=== PATIENT | male | born 1995 | race Caucasian/White ===

== ENCOUNTER → 2018-03-01 | Emergency (ER) | payer OTHER ==
[~2018-03-01] MED LIST: CIPRO500 MG PO; DOXYCYCLINE150 MG; LEVSIN0.125 MG PO; ZANTAC300 MG PO; ZOFRAN4 MG PO
== END | disposition left against medical advice (07) ==
LOC: ER 19:47
DX: Z53.20 Procedure and treatment not carried out because of patient's decision for unspecified reasons (principal)

== ENCOUNTER 2018-11-25 18:47 | Emergency (ER) | payer OTHER ==
[~2018-11-25] VITALS: Ht 167.6 cm; Wt 76.2 kg
[2018-11-25] MEDS ORDERED: CLEOCIN HCL300 MG PO (20:54)
[2018-11-25] MEDS ORDERED: INTESTINEX680 M1 PO (20:54)
== END 2018-11-25 21:19 | disposition home or self-care (01) ==
LOC: ER 18:47
DX: J31.2 Chronic pharyngitis (principal)

== ENCOUNTER 2019-07-23 08:27 | Emergency (ER) | payer OTHER ==
[~2019-07-23] VITALS: Ht 170.2 cm; Wt 63.5 kg
[~2019-07-23 08:27] MED LIST changes: +CLEOCIN HCL300 MG PO; +INTESTINEX680 M1 PO
== END 2019-07-23 13:29 | disposition home or self-care (01) ==
LOC: ER 08:27
DX: K52.89 Other specified noninfective gastroenteritis and colitis (principal)

== ENCOUNTER 2021-10-05 19:40 | Emergency (ER) | payer OTHER ==
[~2021-10-05] VITALS: Ht 170.2 cm; Wt 72.6 kg
[2021-10-05] MEDS ORDERED: MINOCYCLINE HCL50 MG (19:59)
== END 2021-10-05 22:33 | disposition home or self-care (01) ==
LOC: ER 19:40
DX: R42 Dizziness and giddiness (principal); Z88.0 Allergy status to penicillin; Z88.8 Allergy status to other drugs, medicaments and biological substances

== ENCOUNTER 2024-07-16 23:12 | Emergency (ER) | payer OTHER ==
[~2024-07-16] VITALS: Ht 165.1 cm; Wt 79.4 kg
[~2024-07-16 23:12] MED LIST changes: +MINOCYCLINE HCL50 MG
[2024-07-17] MEDS ORDERED: FAMOTIDINE/PF 20 MG/2 ML VIAL IV PUSH STA (00:52)
[2024-07-17] MEDS ORDERED: PROMETHAZINE HCL 50 MG/ML AMPUL IM STA (00:52)
[2024-07-17] MEDS ORDERED: LACTOBACILLUS ACIDOPHILUS 1 CAP CAP PO STA (00:53)
[2024-07-17] MEDS ORDERED: 0.9 % SODIUM CHLORIDE 1,000 ML IV ONE (01:00)
[2024-07-17 01:43] LABS: HEMATOCRIT 46.8 % (39.0-48.0); HEMOGLOBIN 16.5 g/dL (13-16.00); MEAN CELL VOLUME 92.6 fL (80.0-100.00); MEAN CORPUSCULAR HEMOGLOBIN 32.7 pg (27.00-32.0); MEAN CORPUSCULAR HGB CONC 35.3 g/dl (32.0-36.0); PLATELET COUNT 265 K/uL (150-450); RED BLOOD COUNT 5.05 M/uL (4.00-6.00); RED CELL DISTRIBUTION WIDTH 12.3 % (11.5-14.5)
[2024-07-17 01:58] LABS: CALCIUM 9.6 mg/dL (8.5-10.1); CREATININE SERUM 1.28 mg/dL (0.70-1.30); GFR 66.92; POTASSIUM 4.08 mEq/L (3.5-5.1)
[2024-07-17 03:22] LABS: URINE APPEARANCE Clear; URINE BILIRRUBIN Small (NEGATIVE); URINE BLOOD Negative; URINE COLOR Dark Yellow; URINE GLUCOSE Negative (NEGATIVE); URINE LEUKOCYTE Negative; URINE NITRATE Negative; URINE PROTEIN 30 (NEGATIVE)
[2024-07-17 03:29] LABS: URINE CAST 3.53 uL (0.0-1.40); URINE EPITHELIAL CELLS 12.6 uL (0.0-38.8); URINE WBC 7.9 uL (0.0-23.2)
[2024-07-17 03:58] LABS: URINE KETONE 40 (NEGATIVE); URINE RBC 1.4 uL (0.0-20.8)
[2024-07-17 03:59] LABS: URINE MUCUS HEAVY
[2024-07-17] MEDS ORDERED: PEPCID40 MG PO (06:35)
[2024-07-17] MEDS ORDERED: CIPRO500 MG PO ×2 (06:35→06:36)
[2024-07-17] MEDS ORDERED: ONDANSETRON ODT8 MG PO (06:35)
[2024-07-17] MEDS ORDERED: INTESTINEX680 M2 PO ×2 (06:38→06:39)
== END 2024-07-17 06:51 ==
LOC: ER 23:12
PROVIDERS: General Practice
DX: K52.89 Other specified noninfective gastroenteritis and colitis (principal); Z88.2 Allergy status to sulfonamides